=== PATIENT | female | born 1945 | race Caucasian/White ===

== ENCOUNTER → 2017-05-11 | Outpatient (CLI) | payer OTHER ==
[~2017-05-11] MED LIST: ASPIRIN PO; BUSPAR15 M1 PO; CALCIUM + D 6001 TA1 PO; CALCIUM 600 + D1 TA1 PO; CARAFATE1 G PO; CLONIDINE PO; CRESTOR5 MG PO; DOC-Q-LACE100 MG PO; FLAGYL PO; GLUCOSAMINE PO; GLUCOSAMINE1000 MG PO; MIRALAX17 GM PO; MULTI VITAMIN1 EACH PO; NORCO 5/325 TAB1 TAB PO; NORMODYNE PO; PEPCID AC20 M2 PO; PYRIDIUM PO; TYLENOL325 M1 PO; VITAMIN D31000 UNIT PO; ZOCOR PO
--- NOTE | ~2017-05-11 | CT55 ---
[facility]. [facility] A Service of [facility] [place] & [facility] RADIOLOGY TEXT RESULTS PATIENT: OLGA MOCTEZUMA LOCATION: [facility] : 47 UNIT #: [id number] AGE: [address]: Bereket Meade MD SEX: F ORDER DR: [id number] [place] [id number] O MR#: [id number] [facility] #: [id number] NAME: OLGA MOCTEZUMA : 1945 SEX: F STUDY DATE/TIME: 05/11/2017 UNIT: [facility] ROOM: STUDY DESCRIPTION: CT Chest W Con Attending Physician: Bereket Meade M.D. Referring Physician: Bereket Meade M.D. Ordering Physician: Bereket Meade M.D. Primary Care Physician: Bereket Meade M.D. MEDICAL IMAGING REPORT This report is preliminary unless electronic signature is present. EXAM CT chest with contrast 05/11/2017, 0939 hours HISTORY 71-year-old woman with diagnosis of lung carcinoma in 2016 with prior chemo and radiation therapy. More remote history of breast carcinoma. 6-month followup, observation for suspected malignant neoplasm. COMPARISON Chest CT 11/09/2016 and 04/24/2016. TECHNIQUE Dynamic helical CT images were obtained from the thoracic inlet through the adrenal glands. 3-D sagittal and coronal reconstructions were performed. Contrast was Isovue-370 70 mL IV. Total exam DLP 479 mGy/cm. This CT exam was performed with one or more of the following radiation dose reduction techniques: automatic exposure control, adjustment of mA and/or kV according to patient size, and iterative reconstruction. FINDINGS Images through the thoracic inlet are negative. Images through the chest demonstrate mild aortic ectasia measuring 3.6 cm with tortuous aorta. No dissection. Cardiac chambers and pericardium are normal. Again demonstrated is residual soft tissue in the right medial lung abutting the mediastinum, just above the right hilum. There residual density remaining soft tissue now measures 3.8 x 2.8 cm, previously 4.2 x 3.1 cm suggesting continued decrease. There is surrounding linear density. This remaining density could represent treated necrotic tumor or residual tumor. The surrounding density most likely represents STS. [facility] A Service of [facility] & [facility] RADIOLOGY TEXT RESULTS PATIENT: OLGA MOCTEZUMA LOCATION: [facility] : 47 UNIT #: [id number] AGE: [address]: Bereket Meade MD SEX: F ORDER DR: post-radiation change and is stable. There are emphysematous changes in the lungs with no new lung nodules or densities. There is no pleural fluid. Limited views through the upper abdomen demonstrate low-density lesions in the dome of the liver on image 46 and the posterior segment right lobe of the liver on image 51, which are unchanged and most consistent with cysts. There are clips consistent with prior cholecystectomy. There is no adrenal lesion. There are bilateral renal lesions, most consistent with cysts. There is an abdominal aortic aneurysm imaged on the last image of the study measuring up to 4.2 cm anterior to posterior, previously measuring 4 cm. This is incompletely evaluated. Bone window images demonstrate underlying scoliosis with degenerative change. There is progression of change at T5 and T6 with sclerotic endplate changes. There is approximately 50% vertebral body height loss at T6 with new mild vertebral body height loss at T5 and new sclerosis at the inferior endplate of T5. This is at the level of the patient's tumor and the changes could be related to post-radiation change with mild compression. There is significant degenerative change and mild vertebral body height loss in the upper lumbar spine, which is stable. IMPRESSION 1. Residual soft tissue density at the site of primary tumor, posterior and superior to the right hilum, abutting the mediastinum, measures slightly smaller measuring 3.8 x 2.8 cm, previously 4.2 x 3.1 cm. There is stable surrounding post-radiation change. 2. There is no pathologic adenopathy, pulmonary metastasis. Limited views of the liver demonstrate 2 small cysts, unchanged. There is no adrenal lesion. 3. There is bony change at T5 and T6 with further vertebral body height loss at T6, mild new vertebral body height loss at T5 and sclerosis of the inferior endplate of T5. This is noted to be at the level of the patient's primary tumor and these changes could be related to prior radiation therapy. 3. Stable compression deformity upper lumbar spine. Dictated by... Neeru Guadarrama M.D. THIS IS AN ELECTRONICALLY VERIFIED REPORT Neeru Guadarrama M.D. at 05/11/2017 9:21 PM SMM/misael TD: 05/11/2017 18:03 JOB #: [id number] [facility]. [facility] A Service of [facility] & [facility] RADIOLOGY TEXT RESULTS PATIENT: OLGA MOCTEZUMA LOCATION: [facility] #: [id number] : 47 UNIT #: [id number] AGE: [address]: Bereket Meade MD SEX: F ORDER DR: MEDICAL IMAGING REPORT Page 1 of 1
[2017-05-11 09:30] LABS: POC - CREATININE 1.03 mg/dL (0.44-1.03)
== END | disposition home or self-care (01) ==
LOC: SCT 08:57 → CCAT 09:20 → SCT 09:20
PROVIDERS: Radiology Radiation Oncology
DX: C34.91 Malignant neoplasm of unspecified part of right bronchus or lung (principal); G95.20 Unspecified cord compression; K76.89 Other specified diseases of liver
CPT/HCPCS: 71260; 82565; Q9967